=== PATIENT | female | born 1975 | race African-American/Black ===

== ENCOUNTER 2020-07-25 10:27 | Emergency (ER) | payer OTHER ==
[~2020-07-25] VITALS: Ht 144.8 cm; Wt 72.7 kg
[~2020-07-25 10:27] MED LIST: BENZ-51 PO; FLUT1AER IH; IPRA4AER IH; IPRAHFA IH; LEVE500T53 PO; MONT-35 PO; PANT-31 PO; PRED10 PO; RIVA20TA PO
[2020-07-25] MEDS ORDERED: ALBUTEROL SULFATE HFA 90 MCG/PUFF 8 GM INHALER IH ONE (11:00)
[2020-07-25 12:03] LABS: COVID AG,FIA SOURCE NASOPHARYNGEAL
[2020-07-25] MEDS ORDERED: MORPHINE SULFATE 4 MG/ML SYRINGE IVP ONE (12:15)
[2020-07-25] MEDS ORDERED: ONDANSETRON HCL 4 MG/2 ML VIAL IVP ONE (12:15)
[2020-07-25 13:05] LABS: BASOPHILS % (AUTO) 0.9 % (0.0-2.0); EOSINOPHILS % (AUTO) 1.1 % (1.0-6.0); HEMATOCRIT 32.3 % (36-46); HEMOGLOBIN 10.1 g/dL (12.0-16.0); LYMPHOCYTES # (AUTO) 2.2 K/uL (1.0-4.8); LYMPHOCYTES % (AUTO) 22.1 % (22.0-44.0); MEAN CORPUSCULAR HEMOGLOBIN 23.7 pg (26.0-34.0); MEAN CORPUSCULAR HGB CONC 31.1 G/dL (31.0-37.0); MEAN CORPUSCULAR VOLUME 76 fL (80-100); MONOCYTES # (AUTO) 0.4 K/uL (0.1-1.0); MONOCYTES % (AUTO) 4.2 % (2.0-9.0); NEUTROPHILS # (AUTO) 7.3 K/uL (1.8-7.7); NEUTROPHILS % (AUTO) 71.7 % (40.0-70.0); PLATELET COUNT (AUTO) 355 K/uL (150-450); RED BLOOD CELL COUNT(AUTO) 4.24 MIL/uL (4.00-5.20); RED CELL DISTRIBUTION WIDTH 18.8 % (11.5-14.5)
[2020-07-25 13:20] LABS: ALANINE AMINOTRANSFERASE 21 U/L (12-78); ALBUMIN 3.1 g/dL (3.4-5.0); ALKALINE PHOSPHATASE 56 U/L (46-116); ANION GAP 11 mmol/L (8-16); ASPARTATE AMINOTRANSFERASE 9 U/L (15-37); BILIRUBIN,TOTAL 0.5 mg/dL (0.1-1.0); CALCIUM, TOTAL 8.7 mg/dL (8.8-10.5); CARBON DIOXIDE 24 mmol/L (22-29); CHLORIDE 106 mmol/L (98-107); CREATININE 0.44 mg/dL (0.60-1.30); GLOMERULAR FILTR. RATE CALC > 60 mL/min (>60); GLUCOSE,RANDOM 76 mg/dL (70-110); HCG,QUANTITATIVE 1 mIU/mL (0-6); POTASSIUM 3.4 mmol/L (3.5-5.1); SODIUM SERUM 141 mmol/L (136-145); UREA NITROGEN, BLOOD 15 mg/dL (7-18)
[2020-07-25 13:37] LABS: B-TYPE NATRIURETIC PEPTIDE 11 pg/mL (0-100)
[2020-07-25 13:51] VITALS: BP 131/70
== END 2020-07-25 14:05 | disposition home or self-care (01) ==
LOC: EMS 10:29
DX: J45.901 Unspecified asthma with (acute) exacerbation (principal); F12.90 Cannabis use, unspecified, uncomplicated; Z79.899 Other long term (current) drug therapy; Z20.828 Contact with and (suspected) exposure to other viral communicable diseases
CPT/HCPCS: 36415; 71045; 80053; 83880; 84484; 84702; 85025; 85379; 87426; 93005; 94640; 96374; 96375; 99285; J2270; J2405; J3535

== ENCOUNTER 2021-05-05 18:21 | Emergency (ER) | payer OTHER ==
[~2021-05-05] VITALS: Ht 162.6 cm; Wt 94.7 kg
[~2021-05-05 18:21] MED LIST changes: -BENZ-51 PO; +BENZ-70 PO
[2021-05-05 19:53] LABS: GLUCOSE,POINT OF CARE 190 MG/DL (70-110)
[2021-05-05 20:31] LABS: HEMATOCRIT 38.6 % (36-46); HEMOGLOBIN 11.9 g/dL (12.0-16.0); MEAN CORPUSCULAR HEMOGLOBIN 23.5 pg (26.0-34.0); MEAN CORPUSCULAR HGB CONC 30.8 G/dL (31.0-37.0); MEAN CORPUSCULAR VOLUME 76 fL (80-100); PLATELET COUNT (AUTO) 339 K/uL (150-450); RED BLOOD CELL COUNT(AUTO) 5.07 MIL/uL (4.00-5.20); RED CELL DISTRIBUTION WIDTH 19.5 % (11.5-14.5)
[2021-05-05 20:42] LABS: ANION GAP 9 mmol/L (8-16); CALCIUM, TOTAL 9.2 mg/dL (8.8-10.5); CARBON DIOXIDE 27 mmol/L (22-29); CHLORIDE 98 mmol/L (98-107); CREATININE 1.05 mg/dL (0.60-1.30); GLOMERULAR FILTR. RATE CALC > 60 mL/min (>60); GLUCOSE,RANDOM 184 mg/dL (70-110); POTASSIUM 4.5 mmol/L (3.5-5.1); SODIUM SERUM 134 mmol/L (136-145); UREA NITROGEN, BLOOD 40 mg/dL (7-18)
[2021-05-05 21:22] LABS: BAND NEUTROPHILS % (MANUAL) 2 % (0-5); LYMPHOCYTES % (MANUAL) 5 % (22-44); MONOCYTES % (MANUAL) 4 % (2-9); SEGMENTED NEUTROPHILS % 89 % (40-70)
[2021-05-05 21:25] VITALS: BP 130/93
== END 2021-05-05 22:15 | disposition home or self-care (01) ==
LOC: EMS 18:22
DX: G40.909 Epilepsy, unspecified, not intractable, without status epilepticus (principal); F25.9 Schizoaffective disorder, unspecified; D72.829 Elevated white blood cell count, unspecified; R73.9 Hyperglycemia, unspecified; J44.9 Chronic obstructive pulmonary disease, unspecified; F12.90 Cannabis use, unspecified, uncomplicated
CPT/HCPCS: 80048; 82962; 85025; 99283

== ENCOUNTER 2021-06-19 20:57 | Emergency (ER) | payer OTHER ==
[~2021-06-19] VITALS: Ht 170.2 cm; Wt 99.6 kg
[2021-06-19] MEDS ORDERED: LORazepam 2 MG/ML VIAL ONE (21:08)
[2021-06-19] MEDS ORDERED: LORazepam 2 MG/ML VIAL IVP ONE (21:15)
[2021-06-19 22:07] LABS: ANION GAP 7 mmol/L (8-16); CALCIUM, TOTAL 8.2 mg/dL (8.8-10.5); CARBON DIOXIDE 28 mmol/L (22-29); CHLORIDE 107 mmol/L (98-107); CREATININE 0.99 mg/dL (0.60-1.30); GLOMERULAR FILTR. RATE CALC > 60 mL/min (>60); GLUCOSE,RANDOM 96 mg/dL (70-110); POTASSIUM 3.6 mmol/L (3.5-5.1); SODIUM SERUM 142 mmol/L (136-145); UREA NITROGEN, BLOOD 16 mg/dL (7-18)
[2021-06-19 22:13] LABS: VALPROIC ACID 84 mcg/mL (50-100)
[2021-06-19] MEDS ORDERED: HYDROCODONE/ACETAMINOPHEN 5-325 MG TABLET PO ONE (23:00)
[2021-06-20 00:02] VITALS: BP 100/60
== END 2021-06-20 00:37 | disposition home or self-care (01) ==
LOC: EMS 21:02
DX: G40.909 Epilepsy, unspecified, not intractable, without status epilepticus (principal); R07.89 Other chest pain; J45.909 Unspecified asthma, uncomplicated; J44.9 Chronic obstructive pulmonary disease, unspecified; F20.9 Schizophrenia, unspecified; F12.90 Cannabis use, unspecified, uncomplicated
CPT/HCPCS: 36415; 70450; 71045; 80048; 80164; 93005; 96374; 99285; J2060

== ENCOUNTER 2022-04-16 21:48 | Emergency (ER) | payer OTHER ==
[~2022-04-16] VITALS: Ht 157.5 cm; Wt 109.1 kg
[~2022-04-16 21:48] MED LIST changes: +LEVE500T20 PO; -LEVE500T53 PO; +PRED-729 PO; -PRED10 PO
[2022-04-16] MEDS ORDERED: LORazepam 2 MG/ML VIAL ONE (22:03)
[2022-04-16] MEDS ORDERED: VENL-67 PO (22:45)
[2022-04-16] MEDS ORDERED: METO-558 PO (22:45)
[2022-04-16] MEDS ORDERED: PARO-38 PO (22:45)
[2022-04-16] MEDS ORDERED: LORA-999 PO (22:45)
[2022-04-16] MEDS ORDERED: FURO20 PO (22:45)
[2022-04-16] MEDS ORDERED: VALP250C48 PO (22:45)
[2022-04-16] MEDS ORDERED: HYDR-4584 PO (22:45)
[2022-04-16] MEDS ORDERED: LORazepam 2 MG/ML VIAL IVP ONE (22:45)
[2022-04-16] MEDS ORDERED: MELA5TAB40 PO (22:45)
[2022-04-16] MEDS ORDERED: GABA-1181 PO (22:45)
[2022-04-16 22:57] LABS: BASOPHILS % (AUTO) 0.8 % (0.0-2.0); EOSINOPHILS % (AUTO) 3.5 % (1.0-6.0); HEMATOCRIT 39.8 % (36-46); LYMPHOCYTES # (AUTO) 2.1 K/uL (1.0-4.8); LYMPHOCYTES % (AUTO) 23.1 % (22.0-44.0); MEAN CORPUSCULAR HGB CONC 32.6 G/dL (31.0-37.0); MEAN CORPUSCULAR VOLUME 89 fL (80-100); MONOCYTES # (AUTO) 0.8 K/uL (0.1-1.0); MONOCYTES % (AUTO) 8.8 % (2.0-9.0); NEUTROPHILS # (AUTO) 5.8 K/uL (1.8-7.7); NEUTROPHILS % (AUTO) 63.8 % (40.0-70.0); PLATELET COUNT (AUTO) 384 K/uL (150-450); RED BLOOD CELL COUNT(AUTO) 4.47 MIL/uL (4.00-5.20); RED CELL DISTRIBUTION WIDTH 18.3 % (11.5-14.5)
[2022-04-16 23:06] LABS: ANION GAP 8 mmol/L (8-16); CALCIUM, TOTAL 8.6 mg/dL (8.8-10.5); CARBON DIOXIDE 27 mmol/L (22-29); CHLORIDE 105 mmol/L (98-107); CREATININE 0.67 mg/dL (0.60-1.30); GLUCOSE,RANDOM 144 mg/dL (70-110); POTASSIUM 4.2 mmol/L (3.5-5.1); SODIUM SERUM 140 mmol/L (136-145); UREA NITROGEN, BLOOD 16 mg/dL (7-18)
[2022-04-16 23:07] LABS: GLOMERULAR FILTR. RATE CALC > 60 mL/min (>60)
[2022-04-16 23:12] LABS: ALANINE AMINOTRANSFERASE 23 U/L (12-78); ALBUMIN 3.1 g/dL (3.4-5.0); ALKALINE PHOSPHATASE 64 U/L (46-116); ASPARTATE AMINOTRANSFERASE 26 U/L (15-37); BILIRUBIN,TOTAL 0.1 mg/dL (0.1-1.0); TOTAL PROTEIN, SERUM 6.5 g/dL (6.4-8.2)
[2022-04-17 02:18] VITALS: BP 104/65
== END 2022-04-17 03:21 | disposition home or self-care (01) ==
LOC: EMS 22:02
DX: G40.909 Epilepsy, unspecified, not intractable, without status epilepticus (principal); F25.9 Schizoaffective disorder, unspecified; J45.909 Unspecified asthma, uncomplicated; J44.9 Chronic obstructive pulmonary disease, unspecified; E11.9 Type 2 diabetes mellitus without complications; G47.30 Sleep apnea, unspecified; F12.90 Cannabis use, unspecified, uncomplicated; Z87.09 Personal history of other diseases of the respiratory system; Z87.19 Personal history of other diseases of the digestive system; Z86.69 Personal history of other diseases of the nervous system and sense organs; Z87.898 Personal history of other specified conditions
CPT/HCPCS: 36415; 71045; 80053; 85025; 93005; 96374; 99285; J2060

== ENCOUNTER 2022-12-17 18:47 | Inpatient (IN) | payer MEDICAID, OTHER ==
[~2022-12-17] VITALS: Ht 144.8 cm; Wt 233.6 kg
[~2022-12-17 18:47] MED LIST changes: +BENZ-227 PO; -BENZ-70 PO; +FURO20 PO; +GABA-1181 PO; +HYDR-4584 PO; +LORA-999 PO; +MELA5TAB40 PO; +METO-558 PO; +PARO-38 PO; -PRED-729 PO; +VALP250C48 PO; +VENL-67 PO
[2022-12-17 20:52] LABS: COVID AG,FIA SOURCE NASOPHARYNGEAL
[2022-12-17 21:25] LABS: BASOPHILS % (AUTO) 0.6 % (0.0-2.0); EOSINOPHILS % (AUTO) 0 % (1.0-6.0); HEMATOCRIT 36.3 % (36-46); HEMOGLOBIN 11.3 g/dL (12.0-16.0); LYMPHOCYTES # (AUTO) 1.5 K/uL (1.0-4.8); LYMPHOCYTES % (AUTO) 11.9 % (22.0-44.0); MEAN CORPUSCULAR HEMOGLOBIN 25.6 pg (26.0-34.0); MEAN CORPUSCULAR HGB CONC 31.3 G/dL (31.0-37.0); MEAN CORPUSCULAR VOLUME 82 fL (80-100); MONOCYTES # (AUTO) 0.6 K/uL (0.1-1.0); MONOCYTES % (AUTO) 4.5 % (2.0-9.0); NEUTROPHILS # (AUTO) 10.7 K/uL (1.8-7.7); PLATELET COUNT (AUTO) 372 K/uL (150-450); RED BLOOD CELL COUNT(AUTO) 4.43 MIL/uL (4.00-5.20); RED CELL DISTRIBUTION WIDTH 18.8 % (11.5-14.5)
[2022-12-17 21:34] LABS: ANION GAP 10 mmol/L (8-16); CALCIUM, TOTAL 8.8 mg/dL (8.8-10.5); CARBON DIOXIDE 23 mmol/L (22-29); CHLORIDE 105 mmol/L (98-107); CREATININE 0.89 mg/dL (0.60-1.30); GLOMERULAR FILTR. RATE CALC > 60 mL/min (>60); GLUCOSE,RANDOM 264 mg/dL (70-110); POTASSIUM 4.1 mmol/L (3.5-5.1); SODIUM SERUM 138 mmol/L (136-145); UREA NITROGEN, BLOOD 15 mg/dL (7-18)
[2022-12-17 21:57] LABS: ALANINE AMINOTRANSFERASE 13 U/L (12-78); ALBUMIN 2.9 g/dL (3.4-5.0); ALKALINE PHOSPHATASE 59 U/L (46-116); ASPARTATE AMINOTRANSFERASE 13 U/L (15-37); BILIRUBIN,TOTAL 0.2 mg/dL (0.1-1.0); HCG,QUANTITATIVE < 1 mIU/mL (0-6); THYROID STIMULATING HORMONE 0.93 uIU/mL (0.36-3.74); TOTAL PROTEIN, SERUM 6.7 g/dL (6.4-8.2)
[2022-12-18 13:26] LABS: GLUCOSE,POINT OF CARE 195 MG/DL (70-110)
[2022-12-19 03:23] LABS: APPEARANCE,URINE HAZY (CLEAR); BILIRUBIN,URINE NEGATIVE (NEGATIVE); GLUCOSE, URINE (UA) TRACE mg/dL (NEGATIVE); KETONES,URINE TRACE mg/dL (NEGATIVE); LEUKOCYTE ESTERASE ,URINE LARGE (NEGATIVE); NITRATE,URINE NEGATIVE (NEGATIVE); OCCULT BLOOD,URINE NEGATIVE (NEGATIVE); PROTEIN,URINE 30-70 mg/dL (NEGATIVE); SPECIFIC GRAVITIY, URINE 1.032 (1.003-1.030); UROBILINOGEN,URINE <=1.0 mg/dL (<=1.0)
[2022-12-19 03:30] LABS: AMPHET/METH SCREEN,URINE NEGATIVE (NEGATIVE); BACTERIA,URINE Few /HPF (None Seen); BARBITURATE SCREEN, URINE NEGATIVE (NEGATIVE); BENZODIAZEPINES SCREEN,URINE NEGATIVE (NEGATIVE); CANNABINOID SCREEN,URINE NEGATIVE (NEGATIVE); COCAINE SCREEN,URINE NEGATIVE (NEGATIVE); METHADONE SCREEN, URINE NEGATIVE (NEGATIVE); OPIATE SCREEN,URINE NEGATIVE (NEGATIVE); PHENCYCLIDINE SCREEN,URINE NEGATIVE (NEGATIVE); RBC,URINE 0-2 /HPF (0-2)
[2022-12-19 03:31] LABS: CALCIUM OXALATE CRYSTALS,UR Few /LPF (None Seen); SQUAMOUS EPITHELIAL CELL,UR Moderate /LPF (None Seen)
[2022-12-19 09:11] LABS: APPEARANCE,URINE HAZY (CLEAR); BILIRUBIN,URINE NEGATIVE (NEGATIVE); GLUCOSE, URINE (UA) NEGATIVE (NEGATIVE); KETONES,URINE NEGATIVE (NEGATIVE); LEUKOCYTE ESTERASE ,URINE LARGE (NEGATIVE); NITRATE,URINE NEGATIVE (NEGATIVE); OCCULT BLOOD,URINE TRACE (NEGATIVE); PROTEIN,URINE NEGATIVE (NEGATIVE); SPECIFIC GRAVITIY, URINE 1.017 (1.003-1.030); UROBILINOGEN,URINE <=1.0 mg/dL (<=1.0)
[2022-12-19 09:23] LABS: BACTERIA,URINE None Seen /HPF (None Seen); RBC,URINE 0-2 /HPF (0-2); SQUAMOUS EPITHELIAL CELL,UR Many /LPF (None Seen)
[2022-12-19] MEDS ORDERED: LOPERAMIDE HCL 2 MG CAPSULE PO PRN (09:30)
[2022-12-19] MEDS ORDERED: PETROLATUM,WHITE 28 GM JELLY TP PRN (09:30)
[2022-12-19] MEDS ORDERED: ACETAMINOPHEN 325 MG TABLET PO PRN (09:30)
[2022-12-19] MEDS ORDERED: MAGNESIUM HYDROXIDE SUSPENSION 30 ML UDCUP PO PRN (09:30)
[2022-12-19] MEDS ORDERED: DOCUSATE SODIUM 100 MG CAPSULE PO PRN (09:30)
[2022-12-19] MEDS ORDERED: CloNIDine HCL 0.1 MG TABLET PO PRN (09:30)
[2022-12-19] MEDS ORDERED: ONDANSETRON HCL 4 MG TABLET PO PRN (09:30)
[2022-12-19] MEDS ORDERED: MAG HYDROX/AL HYDROX/SIMETH ES 30 ML SUSPENSION UDCUP PO PRN (09:30)
[2022-12-19] MEDS ORDERED: NICOTINE 14 MG/24 HOUR PATCH TD PRN (09:30)
[2022-12-19] MEDS ORDERED: ALBUTEROL SULFATE HFA 90 MCG/PUFF 8 GM INHALER IH PRN (09:30)
[2022-12-19] MEDS ORDERED: GuaiFENesin/D-METHORPHAN [SUGAR-FREE] 200-20MG/10 ML SYRUP UDCUP PO PRN (09:30)
[2022-12-19] MEDS ORDERED: RIVA10TA PO (10:53)
[2022-12-19] MEDS ORDERED: LEVE250T4 PO (11:15)
[2022-12-19] MEDS ORDERED: LEVE500T20 PO (11:15)
[2022-12-19] MEDS: HALOPERIDOL 5 MG TABLET PO PRN (15:41)
[2022-12-19] MEDS: GABAPENTIN 300 MG CAPSULE PO SCH (15:41)
[2022-12-19] MEDS: LORazepam 2 MG TABLET PO PRN (15:41)
[2022-12-19] MEDS: RIVAROXABAN 10 MG TABLET PO SCH (17:22)
[2022-12-19] MEDS: LevETIRAcetam 500 MG TABLET PO SCH (18:38)
[2022-12-19 18:45] VITALS: BP 128/77
[2022-12-19] MEDS: CIPROFLOXACIN HCL 500 MG TABLET PO SCH (18:45)
[2022-12-20 08:10] VITALS: BP 123/77
[2022-12-20] MEDS: CIPROFLOXACIN HCL 500 MG TABLET PO SCH ×2 (10:19→17:41)
[2022-12-20] MEDS: MONTELUKAST SODIUM 10 MG TABLET PO SCH (10:26)
[2022-12-20] MEDS: GABAPENTIN 300 MG CAPSULE PO SCH ×3 (10:29→17:41)
[2022-12-20] MEDS: FUROSEMIDE 20 MG TABLET PO SCH (10:29)
[2022-12-20] MEDS: LevETIRAcetam 500 MG TABLET PO SCH ×2 (10:34→17:41)
[2022-12-20] MEDS: VENLAFAXINE HCL 75 MG ER CAPSULE PO SCH (10:35)
[2022-12-20] MEDS: PANTOPRAZOLE SODIUM 40 MG DR TABLET PO SCH (10:35)
[2022-12-20] MEDS: PARoxetine HCL 20 MG TABLET PO SCH (10:36)
[2022-12-20] MEDS: LORazepam 2 MG TABLET PO PRN (16:32)
[2022-12-20] MEDS: RIVAROXABAN 10 MG TABLET PO SCH (17:42)
[2022-12-20 18:07] VITALS: BP 129/87
[2022-12-20] MEDS: VALPROIC ACID 250 MG/5 ML SOLUTION UDCUP PO SCH (20:57)
[2022-12-20 22:41] VITALS: BP 139/82
[2022-12-21] MEDS: LevETIRAcetam 500 MG TABLET PO SCH ×2 (08:57→16:27)
[2022-12-21] MEDS: FUROSEMIDE 20 MG TABLET PO SCH (08:57)
[2022-12-21] MEDS: PANTOPRAZOLE SODIUM 40 MG DR TABLET PO SCH (08:57)
[2022-12-21] MEDS: GABAPENTIN 300 MG CAPSULE PO SCH ×3 (08:57→16:26)
[2022-12-21] MEDS: CIPROFLOXACIN HCL 500 MG TABLET PO SCH ×2 (08:57→16:26)
[2022-12-21] MEDS: PARoxetine HCL 20 MG TABLET PO SCH (08:57)
[2022-12-21] MEDS: MONTELUKAST SODIUM 10 MG TABLET PO SCH (08:58)
[2022-12-21] MEDS: VENLAFAXINE HCL 75 MG ER CAPSULE PO SCH (08:59)
[2022-12-21 09:37] VITALS: BP 106/67
[2022-12-21 10:04] VITALS: BP 106/67
[2022-12-21] MEDS ORDERED: LORazepam 2 MG/ML VIAL ONE (11:59)
[2022-12-21] MEDS ORDERED: LORazepam 2 MG/ML VIAL IM ONE (12:15)
[2022-12-21 12:16] LABS: GLUCOMETER DEV NAME(LOC) 3E.C; GLUCOSE,POINT OF CARE 141 MG/DL (70-110)
[2022-12-21 16:22] VITALS: BP 146/67
[2022-12-21] MEDS: RIVAROXABAN 10 MG TABLET PO SCH (16:27)
[2022-12-21 18:45] VITALS: BP 147/63
[2022-12-21] MEDS: LORazepam 2 MG TABLET PO PRN ×2 (18:49→22:50)
[2022-12-21] MEDS: HALOPERIDOL 5 MG TABLET PO PRN (19:55)
[2022-12-21] MEDS: VALPROIC ACID 250 MG/5 ML SOLUTION UDCUP PO SCH (21:42)
[2022-12-21 22:22] VITALS: BP 123/75
[2022-12-22] MEDS: VENLAFAXINE HCL 75 MG ER CAPSULE PO SCH (08:19)
[2022-12-22] MEDS: FUROSEMIDE 20 MG TABLET PO SCH (08:19)
[2022-12-22] MEDS: MONTELUKAST SODIUM 10 MG TABLET PO SCH (08:19)
[2022-12-22] MEDS: CIPROFLOXACIN HCL 500 MG TABLET PO SCH ×2 (08:19→17:44)
[2022-12-22] MEDS: GABAPENTIN 300 MG CAPSULE PO SCH ×3 (08:19→17:44)
[2022-12-22] MEDS: LevETIRAcetam 500 MG TABLET PO SCH ×2 (08:19→17:44)
[2022-12-22] MEDS: PARoxetine HCL 20 MG TABLET PO SCH (08:20)
[2022-12-22] MEDS: PANTOPRAZOLE SODIUM 40 MG DR TABLET PO SCH (08:20)
[2022-12-22 08:33] VITALS: BP 122/85
[2022-12-22] MEDS ORDERED: LORazepam 2 MG/ML VIAL ONE (15:34)
[2022-12-22] MEDS ORDERED: LORazepam 2 MG/ML VIAL IM ONE ×2 (15:45→20:30)
[2022-12-22] MEDS ORDERED: INSU100I47 SQ (15:47)
[2022-12-22] MEDS ORDERED: FLUT1BLS3 IH (15:47)
[2022-12-22] MEDS ORDERED: LORA-1000 PO (15:47)
[2022-12-22] MEDS ORDERED: ALBU8HFA IH (15:47)
[2022-12-22] MEDS ORDERED: POTA-203 PO (15:47)
[2022-12-22 16:18] VITALS: BP 148/98
[2022-12-22] MEDS: RIVAROXABAN 10 MG TABLET PO SCH (17:44)
[2022-12-22 20:00] VITALS: BP 116/58
[2022-12-22] MEDS: VALPROIC ACID 250 MG/5 ML SOLUTION UDCUP PO SCH (20:30)
[2022-12-23] VITALS (12 sets, daily range): BP systolic 100–139; BP diastolic 61–86
[2022-12-23] MEDS: LORazepam 2 MG TABLET PO PRN ×4 (02:21→20:51)
[2022-12-23 06:54] LABS: COVID AG,FIA SOURCE NASAL SWAB
[2022-12-23] MEDS: LevETIRAcetam 500 MG TABLET PO SCH ×2 (08:42→16:32)
[2022-12-23] MEDS: VENLAFAXINE HCL 75 MG ER CAPSULE PO SCH (08:42)
[2022-12-23] MEDS: FUROSEMIDE 20 MG TABLET PO SCH (08:43)
[2022-12-23] MEDS: GABAPENTIN 300 MG CAPSULE PO SCH ×3 (08:43→16:32)
[2022-12-23] MEDS: PANTOPRAZOLE SODIUM 40 MG DR TABLET PO SCH (08:43)
[2022-12-23] MEDS: PARoxetine HCL 20 MG TABLET PO SCH (08:43)
[2022-12-23] MEDS: MONTELUKAST SODIUM 10 MG TABLET PO SCH (08:44)
[2022-12-23] MEDS: CIPROFLOXACIN HCL 500 MG TABLET PO SCH ×2 (08:44→16:32)
[2022-12-23 09:21] LABS: GLUCOMETER DEV NAME(LOC) 3E.C; GLUCOSE,POINT OF CARE 164 MG/DL (70-110)
[2022-12-23 15:46] LABS: GLUCOMETER DEV NAME(LOC) 3E.C; GLUCOSE,POINT OF CARE 130 MG/DL (70-110)
[2022-12-23] MEDS: PredniSONE 20 MG TABLET PO SCH (16:34)
[2022-12-23] MEDS: RIVAROXABAN 10 MG TABLET PO SCH (17:16)
[2022-12-23] MEDS: VALPROIC ACID 250 MG/5 ML SOLUTION UDCUP PO SCH (20:27)
[2022-12-23] MEDS: FLUTICASONE/VILANTEROL 200-25 MCG/INH INHALER [14] IH SCH (20:29)
[2022-12-23] MEDS ORDERED: IBUPROFEN 400 MG TABLET PO PRN (22:15)
[2022-12-23] MEDS: ZOLPIDEM TARTRATE 10 MG TABLET PO PRN (23:07)
[2022-12-24 04:50] VITALS: BP 146/65
[2022-12-24] MEDS: LORazepam 2 MG TABLET PO PRN ×2 (04:56→17:07)
[2022-12-24] MEDS: LevETIRAcetam 500 MG TABLET PO SCH ×2 (08:46→16:10)
[2022-12-24] MEDS: PARoxetine HCL 20 MG TABLET PO SCH (08:46)
[2022-12-24] MEDS: GABAPENTIN 300 MG CAPSULE PO SCH ×3 (08:46→16:10)
[2022-12-24] MEDS: FUROSEMIDE 20 MG TABLET PO SCH (08:46)
[2022-12-24] MEDS: PredniSONE 20 MG TABLET PO SCH (08:46)
[2022-12-24] MEDS: PANTOPRAZOLE SODIUM 40 MG DR TABLET PO SCH (08:46)
[2022-12-24] MEDS: VENLAFAXINE HCL 75 MG ER CAPSULE PO SCH (08:46)
[2022-12-24] MEDS: VALPROIC ACID 250 MG CAPSULE PO SCH (08:47)
[2022-12-24] MEDS: FLUTICASONE/VILANTEROL 200-25 MCG/INH INHALER [14] IH SCH (08:47)
[2022-12-24] MEDS: MONTELUKAST SODIUM 10 MG TABLET PO SCH (08:47)
[2022-12-24] MEDS: CIPROFLOXACIN HCL 500 MG TABLET PO SCH ×2 (08:47→16:10)
[2022-12-24 09:06] VITALS: BP 125/85
[2022-12-24 16:10] VITALS: BP 134/73
[2022-12-24] MEDS: RIVAROXABAN 10 MG TABLET PO SCH (16:10)
[2022-12-24 20:25] VITALS: BP_SYST 13; BP_SYST 132; BP_DIAS 72
[2022-12-24] MEDS: VALPROIC ACID 250 MG/5 ML SOLUTION UDCUP PO SCH (20:52)
[2022-12-25] VITALS (8 sets, daily range): BP systolic 123–159; BP diastolic 52–98
[2022-12-25] MEDS: LORazepam 2 MG TABLET PO PRN ×3 (00:21→20:20)
[2022-12-25] MEDS: ZOLPIDEM TARTRATE 10 MG TABLET PO PRN (02:27)
[2022-12-25] MEDS: VALPROIC ACID 250 MG CAPSULE PO SCH (09:10)
[2022-12-25] MEDS: VENLAFAXINE HCL 75 MG ER CAPSULE PO SCH (09:10)
[2022-12-25] MEDS: GABAPENTIN 300 MG CAPSULE PO SCH ×3 (09:10→16:09)
[2022-12-25] MEDS: PANTOPRAZOLE SODIUM 40 MG DR TABLET PO SCH (09:10)
[2022-12-25] MEDS: LevETIRAcetam 500 MG TABLET PO SCH ×2 (09:11→16:09)
[2022-12-25] MEDS: FUROSEMIDE 20 MG TABLET PO SCH (09:11)
[2022-12-25] MEDS: PARoxetine HCL 20 MG TABLET PO SCH (09:12)
[2022-12-25] MEDS: FLUTICASONE/VILANTEROL 200-25 MCG/INH INHALER [14] IH SCH (09:12)
[2022-12-25] MEDS: PredniSONE 20 MG TABLET PO SCH (09:12)
[2022-12-25] MEDS: MONTELUKAST SODIUM 10 MG TABLET PO SCH (09:12)
[2022-12-25] MEDS: RIVAROXABAN 10 MG TABLET PO SCH (16:09)
[2022-12-25 16:16] LABS: GLUCOMETER DEV NAME(LOC) 3E.C; GLUCOSE,POINT OF CARE 272 MG/DL (70-110)
[2022-12-25] MEDS: VALPROIC ACID 250 MG/5 ML SOLUTION UDCUP PO SCH (20:18)
[2022-12-26] MEDS: PARoxetine HCL 20 MG TABLET PO SCH (10:08)
[2022-12-26] MEDS: VALPROIC ACID 250 MG CAPSULE PO SCH (10:08)
[2022-12-26] MEDS: PANTOPRAZOLE SODIUM 40 MG DR TABLET PO SCH (10:08)
[2022-12-26] MEDS: PredniSONE 20 MG TABLET PO SCH (10:08)
[2022-12-26] MEDS: LevETIRAcetam 500 MG TABLET PO SCH ×2 (10:08→16:07)
[2022-12-26] MEDS: GABAPENTIN 300 MG CAPSULE PO SCH ×3 (10:08→16:07)
[2022-12-26] MEDS: VENLAFAXINE HCL 75 MG ER CAPSULE PO SCH (10:08)
[2022-12-26] MEDS: MONTELUKAST SODIUM 10 MG TABLET PO SCH (10:08)
[2022-12-26] MEDS: FUROSEMIDE 20 MG TABLET PO SCH (10:08)
[2022-12-26] MEDS: FLUTICASONE/VILANTEROL 200-25 MCG/INH INHALER [14] IH SCH (10:09)
[2022-12-26 11:00] VITALS: BP 136/91
[2022-12-26] MEDS: LORazepam 2 MG TABLET PO PRN ×2 (13:03→17:45)
[2022-12-26 16:38] VITALS: BP 148/98
[2022-12-26] MEDS: RIVAROXABAN 10 MG TABLET PO SCH (17:44)
[2022-12-26] MEDS: VALPROIC ACID 250 MG/5 ML SOLUTION UDCUP PO SCH (20:48)
[2022-12-26] MEDS ORDERED: VENL-67 PO (21:24)
[2022-12-26] MEDS ORDERED: PARO-37 PO (21:24)
[2022-12-26] MEDS ORDERED: VALP250C48 PO (21:24)
[2022-12-26] MEDS ORDERED: VALP250S23 PO (21:24)
[2022-12-26 21:55] VITALS: BP 108/80
[2022-12-27 04:05] VITALS: BP 128/79
[2022-12-27] MEDS: VALPROIC ACID 250 MG CAPSULE PO SCH (08:32)
[2022-12-27] MEDS: MONTELUKAST SODIUM 10 MG TABLET PO SCH (08:32)
[2022-12-27] MEDS: FLUTICASONE/VILANTEROL 200-25 MCG/INH INHALER [14] IH SCH (08:32)
[2022-12-27] MEDS: LevETIRAcetam 500 MG TABLET PO SCH ×2 (08:36→16:56)
[2022-12-27] MEDS: PredniSONE 20 MG TABLET PO SCH (08:36)
[2022-12-27] MEDS: GABAPENTIN 300 MG CAPSULE PO SCH ×3 (08:36→16:56)
[2022-12-27] MEDS: FUROSEMIDE 20 MG TABLET PO SCH (08:36)
[2022-12-27] MEDS: VENLAFAXINE HCL 75 MG ER CAPSULE PO SCH (08:36)
[2022-12-27] MEDS: PARoxetine HCL 20 MG TABLET PO SCH (08:36)
[2022-12-27] MEDS: PANTOPRAZOLE SODIUM 40 MG DR TABLET PO SCH (08:36)
[2022-12-27 09:25] VITALS: BP 134/95
[2022-12-27 11:30] VITALS: BP 136/100
[2022-12-27] MEDS: LORazepam 2 MG TABLET PO PRN (11:32)
[2022-12-27 16:04] VITALS: BP 132/85
[2022-12-27] MEDS: RIVAROXABAN 10 MG TABLET PO SCH (16:56)
== END 2022-12-27 17:35 | disposition home or self-care (01) | DRG 750 ==
LOC: EMS 19:06 → 3EI 12-19 17:08
PROVIDERS: ADMIT Psychiatry & Neurology Child & Adolescent Psychiatry; ATTEND Psychiatry & Neurology Child & Adolescent Psychiatry
PROC: 4A00X4Z Measurement of Central Nervous Electrical Activity, External Approach (ICD-10-PCS; principal; 2022-12-24)
DX: F25.0 Schizoaffective disorder, bipolar type (principal); G40.909 Epilepsy, unspecified, not intractable, without status epilepticus; R45.850 Homicidal ideations; I48.20 Chronic atrial fibrillation, unspecified; E11.9 Type 2 diabetes mellitus without complications; D64.9 Anemia, unspecified; F12.90 Cannabis use, unspecified, uncomplicated; J45.909 Unspecified asthma, uncomplicated; J44.9 Chronic obstructive pulmonary disease, unspecified; K21.9 Gastro-esophageal reflux disease without esophagitis; Z20.822 Contact with and (suspected) exposure to COVID-19; G47.33 Obstructive sleep apnea (adult) (pediatric); I10 Essential (primary) hypertension; R45.88 Nonsuicidal self-harm; Z76.5 Malingerer [conscious simulation]; Z79.899 Other long term (current) drug therapy; Z86.711 Personal history of pulmonary embolism
CPT/HCPCS: 71046; 80053; 80164; 80307; 81001; 82962; 84443; 84702; 85025; 87081; 87086; 87186; 95816; 99285; G0480; G0482; J2060; J3535; Q9967; 36415-L1; 36415-TC

== ENCOUNTER 2023-01-15 16:19 | Emergency (ER) | payer MEDICAID, OTHER ==
[~2023-01-15] VITALS: Ht 144.8 cm; Wt 133.2 kg
[~2023-01-15 16:19] MED LIST changes: -BENZ-227 PO; -FLUT1AER IH; +FLUT1BLS3 IH; -HYDR-4584 PO; -IPRA4AER IH; -IPRAHFA IH; -LORA-999 PO; -MELA5TAB40 PO; -METO-558 PO; +PARO-37 PO; -PARO-38 PO; +RIVA10TA PO; -RIVA20TA PO; +VALP250S23 PO
[2023-01-15] MEDS ORDERED: QUET25TA PO (16:37)
[2023-01-15] MEDS ORDERED: AUD NEB (16:37)
[2023-01-15] MEDS ORDERED: CHOL25TA4 PO (16:37)
[2023-01-15] MEDS ORDERED: INSLAN SQ (16:37)
[2023-01-15] MEDS ORDERED: BUDE0.5A NEB (16:37)
[2023-01-15] MEDS ORDERED: HYDR-4584 PO (16:37)
[2023-01-15] MEDS ORDERED: LORA-1000 PO (16:37)
[2023-01-15] MEDS ORDERED: METF-1211 PO (16:37)
[2023-01-15] MEDS ORDERED: ACET-2247 PO (16:37)
[2023-01-15] MEDS ORDERED: MELA5TAB40 PO (16:37)
[2023-01-15] MEDS ORDERED: ALBU18HF12 IH (16:37)
[2023-01-15] MEDS ORDERED: LACO100T4 PO (16:37)
[2023-01-15] MEDS ORDERED: FAMO20 PO (16:37)
[2023-01-15] MEDS ORDERED: SODIUM CHLORIDE 0.9% 1,000 ML IV ONE (16:45)
[2023-01-15] MEDS ORDERED: LevETIRAcetam 1,000 MG in DEXTROSE 5%-WATER 100 ML IV ONE (16:45)
[2023-01-15 17:23] VITALS: BP 139/82
[2023-01-15] MEDS ORDERED: KETOROLAC TROMETHAMINE 30 MG/ML VIAL IVP ONE (17:45)
[2023-01-15 20:13] LABS: EOSINOPHILS % (AUTO) 4.5 % (1.0-6.0); HEMATOCRIT 32.4 % (36-46); HEMOGLOBIN 10.2 g/dL (12.0-16.0); LYMPHOCYTES # (AUTO) 2.7 K/uL (1.0-4.8); LYMPHOCYTES % (AUTO) 32.4 % (22.0-44.0); MEAN CORPUSCULAR HEMOGLOBIN 25.7 pg (26.0-34.0); MEAN CORPUSCULAR HGB CONC 31.4 G/dL (31.0-37.0); MEAN CORPUSCULAR VOLUME 82 fL (80-100); MONOCYTES # (AUTO) 0.6 K/uL (0.1-1.0); NEUTROPHILS # (AUTO) 4.7 K/uL (1.8-7.7); NEUTROPHILS % (AUTO) 55.1 % (40.0-70.0); PLATELET COUNT (AUTO) 427 K/uL (150-450); RED BLOOD CELL COUNT(AUTO) 3.96 MIL/uL (4.00-5.20); RED CELL DISTRIBUTION WIDTH 18.5 % (11.5-14.5)
[2023-01-15 20:14] LABS: ANION GAP 8 mmol/L (8-16); CALCIUM, TOTAL 8.2 mg/dL (8.8-10.5); CARBON DIOXIDE 25 mmol/L (22-29); CHLORIDE 110 mmol/L (98-107); CREATININE 0.66 mg/dL (0.60-1.30); GLOMERULAR FILTR. RATE CALC > 60 mL/min (>60); GLUCOSE,RANDOM 100 mg/dL (70-110); SODIUM SERUM 143 mmol/L (136-145); UREA NITROGEN, BLOOD 9 mg/dL (7-18)
[2023-01-15 20:19] LABS: ALANINE AMINOTRANSFERASE 10 U/L (12-78); ALBUMIN 2.6 g/dL (3.4-5.0); ALKALINE PHOSPHATASE 62 U/L (46-116); ASPARTATE AMINOTRANSFERASE 34 U/L (15-37); BILIRUBIN,TOTAL 0.2 mg/dL (0.1-1.0)
[2023-01-15 20:23] LABS: PROTHROMBIN TIME 11.1 SEC (9.4-11.6)
[2023-01-15] MEDS ORDERED: ACETAMINOPHEN 500 MG TABLET PO ONE (20:30)
[2023-01-15 20:55] LABS: LACTIC ACID 2.1 mmol/L (0.4-2.0)
== END 2023-01-15 22:54 | disposition home or self-care (01) ==
LOC: EMS 16:20
DX: G40.909 Epilepsy, unspecified, not intractable, without status epilepticus (principal); J45.909 Unspecified asthma, uncomplicated; J44.9 Chronic obstructive pulmonary disease, unspecified; E11.9 Type 2 diabetes mellitus without complications; F20.9 Schizophrenia, unspecified; F12.90 Cannabis use, unspecified, uncomplicated
CPT/HCPCS: 99285; 96365; 71045; 96375; 80053; 83605; 85025; 85610; 85730; 36415; 93005; J0712; J1885; J7060

== ENCOUNTER 2023-05-25 21:12 | Emergency (ER) | payer OTHER ==
[~2023-05-25] VITALS: Ht 152.4 cm; Wt 91.2 kg
[~2023-05-25 21:12] MED LIST changes: +ACET-2247 PO; +ALBU18HF12 IH; +ALBU2.5V39 NEB; +BUDE0.5A NEB; +CHOL25TA4 PO; +FAMO20 PO; -FURO20 PO; +HYDR-4584 PO; +INSLAN SQ; +LACO100T4 PO; +LORA-1000 PO; +MELA5TAB40 PO; +METF-1211 PO; -PANT-31 PO; +QUET25TA PO; -VALP250C48 PO; -VENL-67 PO
[2023-05-25 21:25] VITALS: TEMP 98.1
[2023-05-25] MEDS ORDERED: LevETIRAcetam 1,000 MG in DEXTROSE 5%-WATER 100 ML IV ONE (21:30)
[2023-05-25 22:25] LABS: BASOPHILS % (AUTO) 1.2 % (0.0-2.0); EOSINOPHILS % (AUTO) 3.7 % (1.0-6.0); HEMATOCRIT 30.4 % (36-46); HEMOGLOBIN 9.3 g/dL (12.0-16.0); LYMPHOCYTES # (AUTO) 2.6 K/uL (1.0-4.8); LYMPHOCYTES % (AUTO) 26.1 % (22.0-44.0); MEAN CORPUSCULAR HEMOGLOBIN 21.6 pg (26.0-34.0); MEAN CORPUSCULAR HGB CONC 30.5 G/dL (31.0-37.0); MEAN CORPUSCULAR VOLUME 71 fL (80-100); MONOCYTES # (AUTO) 0.7 K/uL (0.1-1.0); MONOCYTES % (AUTO) 6.8 % (2.0-9.0); NEUTROPHILS # (AUTO) 6.3 K/uL (1.8-7.7); NEUTROPHILS % (AUTO) 62.2 % (40.0-70.0); PLATELET COUNT (AUTO) 398 K/uL (150-450); RED BLOOD CELL COUNT(AUTO) 4.31 MIL/uL (4.00-5.20); RED CELL DISTRIBUTION WIDTH 20.9 % (11.5-14.5)
[2023-05-25] MEDS ORDERED: MORPHINE SULFATE 2 MG/ML SYRINGE IVP ONE (22:30)
[2023-05-25 22:33] LABS: ANION GAP 13 mmol/L (8-16); CARBON DIOXIDE 22 mmol/L (22-29); CHLORIDE 104 mmol/L (98-107); CREATININE 0.83 mg/dL (0.60-1.30); GLOMERULAR FILTR. RATE CALC > 60 mL/min (>60); GLUCOSE,RANDOM 90 mg/dL (70-110); POTASSIUM 3.8 mmol/L (3.5-5.1); SODIUM SERUM 139 mmol/L (136-145)
[2023-05-25 22:37] LABS: PROTHROMBIN TIME 10.7 SEC (9.4-11.6)
[2023-05-25 22:39] LABS: ALANINE AMINOTRANSFERASE 21 U/L (12-78); ALBUMIN 3.2 g/dL (3.4-5.0); ALKALINE PHOSPHATASE 80 U/L (46-116); ASPARTATE AMINOTRANSFERASE 21 U/L (15-37); BILIRUBIN,TOTAL 0.3 mg/dL (0.1-1.0); CREATINE KINASE, TOTAL ONLY 43 U/L (26-192)
[2023-05-25 22:41] LABS: LACTIC ACID 1.1 mmol/L (0.4-2.0)
[2023-05-26] MEDS ORDERED: MIDAZOLAM HCL 5 MG/ML VIAL IVP ONE
[2023-05-26 00:56] VITALS: BP 118/76; PULSE 88; RESP 16
== END 2023-05-26 01:45 | disposition home or self-care (01) ==
LOC: EMS 21:12
DX: G40.909 Epilepsy, unspecified, not intractable, without status epilepticus (principal); J45.909 Unspecified asthma, uncomplicated; J44.9 Chronic obstructive pulmonary disease, unspecified; E11.9 Type 2 diabetes mellitus without complications; F20.9 Schizophrenia, unspecified; F12.90 Cannabis use, unspecified, uncomplicated
CPT/HCPCS: 99285; 96365; 70450; 71045; 96375; 80053; 82550; 83605; 84484; 85025; 85610; 85730; 36415; 93005; J0712; J2270; J7060; 51702

== ENCOUNTER 2024-05-26 18:27 | Inpatient (IN) | payer OTHER ==
[~2024-05-26] VITALS: Ht 165.1 cm; Wt 81.8 kg
[~2024-05-26 18:27] MED LIST changes: +LEVE-71 PO; -LEVE500T20 PO
[2024-05-26] MEDS: MIDAZOLAM HCL 5 MG/ML VIAL IM ONE (18:52)
[2024-05-26] MEDS: LevETIRAcetam 1,500 MG in DEXTROSE 5%-WATER 100 ML IV ONE (19:09)
[2024-05-26 19:15] LABS: BASOPHILS % (AUTO) 0.2 % (0.0-2.0); EOSINOPHILS % (AUTO) 0 % (1.0-6.0); HEMATOCRIT 42.5 % (36-46); HEMOGLOBIN 13.6 g/dL (12.0-16.0); LYMPHOCYTES # (AUTO) 0.6 K/uL (1.0-4.8); LYMPHOCYTES % (AUTO) 6.3 % (22.0-44.0); MEAN CORPUSCULAR HEMOGLOBIN 26.6 pg (26.0-34.0); MEAN CORPUSCULAR VOLUME 83 fL (80-100); MONOCYTES % (AUTO) 0.3 % (2.0-9.0); NEUTROPHILS # (AUTO) 8.7 K/uL (1.8-7.7); NEUTROPHILS % (AUTO) 93.2 % (40.0-70.0); PLATELET COUNT (AUTO) 360 K/uL (150-450); RED BLOOD CELL COUNT(AUTO) 5.12 MIL/uL (4.00-5.20); RED CELL DISTRIBUTION WIDTH 19.8 % (11.5-14.5); WHITE BLOOD COUNT (AUTO) 9.4 K/uL (4.5-11.0)
[2024-05-26 19:25] LABS: ANION GAP 18 mmol/L (8-16); CALCIUM, TOTAL 8.8 mg/dL (8.8-10.5); CARBON DIOXIDE 18 mmol/L (22-29); CHLORIDE 106 mmol/L (98-107); CREATININE 1.02 mg/dL (0.60-1.30); GLOMERULAR FILTR. RATE CALC > 60 mL/min (>60); GLUCOSE,RANDOM 124 mg/dL (70-110); POTASSIUM 3.7 mmol/L (3.5-5.1); RBC MORPHOLOGY COMMENT NORMAL RBC MORPH; SODIUM SERUM 141 mmol/L (136-145); UREA NITROGEN, BLOOD 11 mg/dL (7-18)
[2024-05-26 19:32] LABS: ALANINE AMINOTRANSFERASE 27 U/L (12-78); ALBUMIN 3.4 g/dL (3.4-5.0); ALKALINE PHOSPHATASE 90 U/L (46-116); ASPARTATE AMINOTRANSFERASE 19 U/L (15-37); BILIRUBIN,TOTAL 0.4 mg/dL (0.1-1.0); CREATINE KINASE, TOTAL ONLY 67 U/L (26-192); TOTAL PROTEIN, SERUM 7.5 g/dL (6.4-8.2)
[2024-05-26] MEDS ORDERED: MAGNESIUM HYDROXIDE SUSPENSION 30 ML UDCUP PO PRN (22:30)
[2024-05-26] MEDS ORDERED: BISACODYL 10 MG RECTAL RECTAL SUPPOSITORY PR PRN (22:30)
[2024-05-26] MEDS ORDERED: ZOLPIDEM TARTRATE 5 MG TABLET PO PRN (22:30)
[2024-05-26] MEDS ORDERED: HydrOXYzine HCL 50 MG TABLET PO PRN (22:30)
[2024-05-27] VITALS (10 sets, daily range): BP systolic 125–144; BP diastolic 66–92; PULSE 59–99; RESP 14–20; TEMP 97.7–98.7; O2SAT 93–99
[2024-05-27] MEDS: HEPARIN SODIUM,PORCINE 5,000 UNITS/ML VIAL SQ SCH (02:02)
[2024-05-27] MEDS: IPRATROPIUM BROMIDE 0.5 MG/2.5 ML NEB SOLUTION NEB PRN (04:16)
[2024-05-27] MEDS: ALBUTEROL SULFATE 2.5 MG/0.5 ML NEB SOLUTION NEB PRN (04:16)
[2024-05-27] MEDS: LORazepam 2 MG/ML VIAL IVP PRN (05:51)
[2024-05-27] MEDS: FAMOTIDINE 20 MG TABLET PO SCH (08:38)
[2024-05-27] MEDS: CHOLECALCIFEROL (VIT D3) 1,000 UNITS [25 MCG] TABLET PO SCH (08:39)
[2024-05-27] MEDS: LevETIRAcetam 500 MG TABLET PO SCH (08:39)
[2024-05-27] MEDS: MONTELUKAST SODIUM 10 MG TABLET PO SCH (08:39)
[2024-05-27] MEDS: GABAPENTIN 300 MG CAPSULE PO SCH (08:39)
[2024-05-27] MEDS: LACOSAMIDE 100 MG TABLET PO SCH (08:39)
[2024-05-27] MEDS: PANTOPRAZOLE SODIUM 40 MG DR TABLET PO SCH (08:39)
[2024-05-27] MEDS: ONDANSETRON HCL 4 MG/2 ML VIAL IVP PRN (08:43)
[2024-05-27] MEDS: INSULIN GLARGINE,HUM.REC.ANLOG 100 UNITS/ML SQ SCH (08:52)
[2024-05-27] MEDS: PARoxetine HCL 20 MG TABLET PO SCH (09:00)
[2024-05-27 17:15] LABS: GLUCOMETER DEV NAME(LOC) 5S.1B; GLUCOSE,POINT OF CARE 121 MG/DL (70-110)
[2024-05-27] MEDS: HYDROCODONE/ACETAMINOPHEN 5-325 MG TABLET PO PRN (17:28)
[2024-05-27] MEDS: MORPHINE SULFATE 2 MG/ML SYRINGE IVP PRN (18:40)
[2024-05-27] MEDS: MELATONIN 5 MG TABLET PO SCH (20:39)
[2024-05-27] MEDS: RIVAROXABAN 10 MG TABLET PO SCH (20:40)
[2024-05-27] MEDS: VALPROIC ACID 250 MG/5 ML SOLUTION UDCUP PO SCH (23:57)
[2024-05-27] MEDS: QUEtiapine FUMARATE 25 MG TABLET PO SCH (23:57)
[2024-05-28 05:44] VITALS: BP 129/72; PULSE 96; RESP 19; TEMP 97.7
[2024-05-28 08:00] VITALS: BP 111/70; PULSE 53; RESP 19; TEMP 98.3
[2024-05-28 16:00] VITALS: BP 126/59; PULSE 89; RESP 19; TEMP 97.5
[2024-05-28 20:00] VITALS: BP 125/85; PULSE 73; RESP 18; TEMP 97.5
[2024-05-29 05:35] VITALS: BP 120/81; PULSE 84; RESP 18; TEMP 98.1
[2024-05-29 08:34] VITALS: BP 131/95; PULSE 90; RESP 17; TEMP 97.2
[2024-05-29 09:12] LABS: BASOPHILS % (AUTO) 1.2 % (0.0-2.0); EOSINOPHILS % (AUTO) 1.8 % (1.0-6.0); HEMATOCRIT 43.8 % (36-46); HEMOGLOBIN 14.4 g/dL (12.0-16.0); LYMPHOCYTES % (AUTO) 45.2 % (22.0-44.0); MEAN CORPUSCULAR HEMOGLOBIN 27.5 pg (26.0-34.0); MEAN CORPUSCULAR HGB CONC 32.8 G/dL (31.0-37.0); MEAN CORPUSCULAR VOLUME 84 fL (80-100); MONOCYTES # (AUTO) 0.4 K/uL (0.1-1.0); MONOCYTES % (AUTO) 5.9 % (2.0-9.0); NEUTROPHILS % (AUTO) 45.9 % (40.0-70.0); PLATELET COUNT (AUTO) 368 K/uL (150-450); RED BLOOD CELL COUNT(AUTO) 5.23 MIL/uL (4.00-5.20); WHITE BLOOD COUNT (AUTO) 6.6 K/uL (4.5-11.0)
[2024-05-29] MEDS: LORazepam 1 MG TABLET PO PRN (09:43)
[2024-05-29 09:54] LABS: ALANINE AMINOTRANSFERASE 40 U/L (12-78); ALBUMIN 3.2 g/dL (3.4-5.0); ALKALINE PHOSPHATASE 86 U/L (46-116); ANION GAP 10 mmol/L (8-16); ASPARTATE AMINOTRANSFERASE 18 U/L (15-37); BILIRUBIN,TOTAL 0.5 mg/dL (0.1-1.0); CALCIUM, TOTAL 8.8 mg/dL (8.8-10.5); CARBON DIOXIDE 24 mmol/L (22-29); CHLORIDE 110 mmol/L (98-107); CREATININE 0.83 mg/dL (0.60-1.30); GLOMERULAR FILTR. RATE CALC > 60 mL/min (>60); GLUCOSE,RANDOM 75 mg/dL (70-110); POTASSIUM 4.2 mmol/L (3.5-5.1); SODIUM SERUM 144 mmol/L (136-145); TOTAL PROTEIN, SERUM 6.8 g/dL (6.4-8.2); UREA NITROGEN, BLOOD 14 mg/dL (7-18)
[2024-05-29 15:23] VITALS: BP 127/98; PULSE 74; RESP 18; TEMP 97.7
[2024-05-29] MEDS: ACETAMINOPHEN 325 MG TABLET PO PRN (16:28)
== END 2024-05-29 18:19 | DRG 53 ==
LOC: EMS 18:27 → EDH 22:26 → 5S 05-27 01:45 → 4E 05-27 18:00
PROVIDERS: ADMIT Hospitalist; ATTEND Hospitalist
PROC: 05HC33Z Insertion of Infusion Device into Left Basilic Vein, Percutaneous Approach (ICD-10-PCS; principal; 2024-05-27)
DX: G40.901 Epilepsy, unspecified, not intractable, with status epilepticus (principal); F25.9 Schizoaffective disorder, unspecified; J44.1 Chronic obstructive pulmonary disease with (acute) exacerbation; E11.9 Type 2 diabetes mellitus without complications; G47.30 Sleep apnea, unspecified; K21.9 Gastro-esophageal reflux disease without esophagitis; Z86.711 Personal history of pulmonary embolism; Z79.4 Long term (current) use of insulin; Z79.899 Other long term (current) drug therapy
CPT/HCPCS: 36245; 36569; 76937; 80053; 82550; 82962; 85025; 93005; 94640; 97162; 97530; 99285; G0378; J0712; J1644; J1815; J2060; J2270; J2405; J7060

== ENCOUNTER 2024-05-31 18:48 | Emergency (ER) | payer OTHER ==
[~2024-05-31] VITALS: Ht 160 cm; Wt 87.0 kg
[2024-05-31] MEDS ORDERED: LORazepam 2 MG/ML VIAL ONE (19:18)
[2024-05-31 19:29] VITALS: TEMP 98.4
[2024-05-31 20:28] LABS: BASOPHILS % (AUTO) 0.9 % (0.0-2.0); EOSINOPHILS % (AUTO) 1.7 % (1.0-6.0); HEMATOCRIT 41.9 % (36-46); HEMOGLOBIN 13.6 g/dL (12.0-16.0); LYMPHOCYTES # (AUTO) 3.7 K/uL (1.0-4.8); LYMPHOCYTES % (AUTO) 32.5 % (22.0-44.0); MEAN CORPUSCULAR HEMOGLOBIN 27.2 pg (26.0-34.0); MEAN CORPUSCULAR HGB CONC 32.4 G/dL (31.0-37.0); MEAN CORPUSCULAR VOLUME 84 fL (80-100); MONOCYTES # (AUTO) 0.7 K/uL (0.1-1.0); MONOCYTES % (AUTO) 6.5 % (2.0-9.0); NEUTROPHILS # (AUTO) 6.6 K/uL (1.8-7.7); NEUTROPHILS % (AUTO) 58.4 % (40.0-70.0); PLATELET COUNT (AUTO) 378 K/uL (150-450); RED BLOOD CELL COUNT(AUTO) 5.01 MIL/uL (4.00-5.20); RED CELL DISTRIBUTION WIDTH 18.9 % (11.5-14.5); WHITE BLOOD COUNT (AUTO) 11.3 K/uL (4.5-11.0)
[2024-05-31 20:34] LABS: ANION GAP 12 mmol/L (8-16); CALCIUM, TOTAL 8.6 mg/dL (8.8-10.5); CARBON DIOXIDE 24 mmol/L (22-29); CHLORIDE 105 mmol/L (98-107); CREATININE 0.75 mg/dL (0.60-1.30); GLOMERULAR FILTR. RATE CALC > 60 mL/min (>60); GLUCOSE,RANDOM 85 mg/dL (70-110); POTASSIUM 3.6 mmol/L (3.5-5.1); SODIUM SERUM 141 mmol/L (136-145); UREA NITROGEN, BLOOD 16 mg/dL (7-18)
[2024-05-31 20:49] VITALS: BP 135/75; PULSE 86; RESP 18
[2024-05-31] MEDS: LORazepam 2 MG/ML VIAL IM ONE (20:55)
[2024-05-31 21:01] LABS: ALANINE AMINOTRANSFERASE 35 U/L (12-78); ALBUMIN 3.2 g/dL (3.4-5.0); ALKALINE PHOSPHATASE 86 U/L (46-116); ASPARTATE AMINOTRANSFERASE 19 U/L (15-37); BILIRUBIN,TOTAL 0.3 mg/dL (0.1-1.0); CREATINE KINASE, TOTAL ONLY 82 U/L (26-192); TOTAL PROTEIN, SERUM 6.8 g/dL (6.4-8.2)
== END 2024-05-31 23:41 | disposition home or self-care (01) ==
LOC: EMS 18:48
DX: R56.9 Unspecified convulsions (principal); J44.9 Chronic obstructive pulmonary disease, unspecified; E11.9 Type 2 diabetes mellitus without complications; F20.9 Schizophrenia, unspecified; F12.90 Cannabis use, unspecified, uncomplicated
CPT/HCPCS: 99283; 80053; 82550; 85025; 36415; 96372; J2060

== ENCOUNTER 2024-06-01 13:20 | Emergency (ER) | payer OTHER ==
[~2024-06-01] VITALS: Ht 162.6 cm; Wt 127.3 kg
[2024-06-01 14:15] VITALS: TEMP 99.2
[2024-06-01 14:22] VITALS: BP 130/70; PULSE 90; RESP 18
[2024-06-01 15:57] LABS: BASOPHILS % (AUTO) 0.8 % (0.0-2.0); EOSINOPHILS % (AUTO) 1.1 % (1.0-6.0); HEMATOCRIT 43.5 % (36-46); HEMOGLOBIN 14.1 g/dL (12.0-16.0); LYMPHOCYTES # (AUTO) 2.7 K/uL (1.0-4.8); LYMPHOCYTES % (AUTO) 26.7 % (22.0-44.0); MEAN CORPUSCULAR HEMOGLOBIN 27.1 pg (26.0-34.0); MEAN CORPUSCULAR HGB CONC 32.5 G/dL (31.0-37.0); MEAN CORPUSCULAR VOLUME 84 fL (80-100); MONOCYTES # (AUTO) 0.7 K/uL (0.1-1.0); MONOCYTES % (AUTO) 6.8 % (2.0-9.0); NEUTROPHILS # (AUTO) 6.5 K/uL (1.8-7.7); NEUTROPHILS % (AUTO) 64.6 % (40.0-70.0); PLATELET COUNT (AUTO) 391 K/uL (150-450); RED CELL DISTRIBUTION WIDTH 19.3 % (11.5-14.5); WHITE BLOOD COUNT (AUTO) 10.1 K/uL (4.5-11.0)
[2024-06-01 16:06] LABS: ANION GAP 11 mmol/L (8-16); CALCIUM, TOTAL 9.4 mg/dL (8.8-10.5); CARBON DIOXIDE 24 mmol/L (22-29); CHLORIDE 105 mmol/L (98-107); CREATININE 0.78 mg/dL (0.60-1.30); GLOMERULAR FILTR. RATE CALC > 60 mL/min (>60); GLUCOSE,RANDOM 78 mg/dL (70-110); POTASSIUM 3.8 mmol/L (3.5-5.1); SODIUM SERUM 140 mmol/L (136-145); UREA NITROGEN, BLOOD 14 mg/dL (7-18)
== END 2024-06-01 18:59 | disposition home or self-care (01) ==
LOC: EMS 13:20
DX: R56.9 Unspecified convulsions (principal); E11.9 Type 2 diabetes mellitus without complications; E11.65 Type 2 diabetes mellitus with hyperglycemia; J45.909 Unspecified asthma, uncomplicated; J44.9 Chronic obstructive pulmonary disease, unspecified; F20.9 Schizophrenia, unspecified; K21.9 Gastro-esophageal reflux disease without esophagitis; F12.90 Cannabis use, unspecified, uncomplicated
CPT/HCPCS: 80048; 82962; 85025; 99283

== ENCOUNTER 2024-07-28 12:39 | Inpatient (IN) | payer MEDICAID, OTHER ==
[~2024-07-28] VITALS: Ht 144.8 cm; Wt 83.8 kg
[2024-07-28 14:24] LABS: BASOPHILS % (AUTO) 1.1 % (0.0-2.0); EOSINOPHILS % (AUTO) 1.9 % (1.0-6.0); HEMOGLOBIN 14.1 g/dL (12.0-16.0); LYMPHOCYTES # (AUTO) 3.1 K/uL (1.0-4.8); LYMPHOCYTES % (AUTO) 36.9 % (22.0-44.0); MEAN CORPUSCULAR HEMOGLOBIN 28.2 pg (26.0-34.0); MEAN CORPUSCULAR HGB CONC 32.8 G/dL (31.0-37.0); MEAN CORPUSCULAR VOLUME 86 fL (80-100); MONOCYTES # (AUTO) 0.5 K/uL (0.1-1.0); MONOCYTES % (AUTO) 5.5 % (2.0-9.0); NEUTROPHILS # (AUTO) 4.7 K/uL (1.8-7.7); NEUTROPHILS % (AUTO) 54.6 % (40.0-70.0); PLATELET COUNT (AUTO) 342 K/uL (150-450); RED BLOOD CELL COUNT(AUTO) 5.02 MIL/uL (4.00-5.20); RED CELL DISTRIBUTION WIDTH 16.4 % (11.5-14.5); WHITE BLOOD COUNT (AUTO) 8.5 K/uL (4.5-11.0)
[2024-07-28 14:30] LABS: ANION GAP 10 mmol/L (8-16); CARBON DIOXIDE 24 mmol/L (22-29); CHLORIDE 107 mmol/L (98-107); CREATININE 0.52 mg/dL (0.60-1.30); GLUCOSE,RANDOM 108 mg/dL (70-110); POTASSIUM 4.1 mmol/L (3.5-5.1); SODIUM SERUM 141 mmol/L (136-145); UREA NITROGEN, BLOOD 16 mg/dL (7-18)
[2024-07-28 14:31] LABS: CALCIUM, TOTAL 8.7 mg/dL (8.8-10.5); GLOMERULAR FILTR. RATE CALC > 60 mL/min (>60)
[2024-07-28 14:42] LABS: ALCOHOL, BLOOD (SERUM) < 3 mg/dL (0-10)
[2024-07-28 16:04] LABS: COVID AG,FIA SOURCE NASAL SWAB
[2024-07-28 16:13] LABS: PH,URINE DRUG SCREEN 6.5 (5.0-8.0)
[2024-07-28] MEDS ORDERED: PANT-31 PO (16:14)
[2024-07-28] MEDS ORDERED: SACC250C3 PO (16:14)
[2024-07-28] MEDS ORDERED: SENN-376 PO (16:14)
[2024-07-28] MEDS ORDERED: CEPH-558 PO (16:14)
[2024-07-28] MEDS ORDERED: ASCO500 PO (16:14)
[2024-07-28 16:19] LABS: AMPHET/METH SCREEN,URINE NEGATIVE (NEGATIVE); BARBITURATE SCREEN, URINE NEGATIVE (NEGATIVE); BENZODIAZEPINES SCREEN,URINE NEGATIVE (NEGATIVE); CANNABINOID SCREEN,URINE POSITIVE (NEGATIVE); COCAINE SCREEN,URINE NEGATIVE (NEGATIVE); METHADONE SCREEN, URINE NEGATIVE (NEGATIVE); OPIATE SCREEN,URINE NEGATIVE (NEGATIVE); PHENCYCLIDINE SCREEN,URINE NEGATIVE (NEGATIVE)
[2024-07-28 16:24] LABS: ALCOHOL, URINE DRUG SCREEN NEGATIVE (NEGATIVE)
[2024-07-28 16:31] LABS: SARS-COV2 (COVID) ANTIGEN,FIA Negative (Negative)
[2024-07-28] MEDS: OxyCODONE HCL 5 MG IR TABLET PO ONE ×2 (16:43→20:46)
[2024-07-28] MEDS: KETOROLAC TROMETHAMINE 30 MG/ML VIAL IM ONE (16:43)
[2024-07-28] MEDS: LORazepam 2 MG TABLET PO PRN (21:08)
[2024-07-28] MEDS: ZOLPIDEM TARTRATE 10 MG TABLET PO PRN (21:08)
[2024-07-28] MEDS: HALOPERIDOL 5 MG TABLET PO PRN (21:08)
[2024-07-29 02:43] VITALS: BP 130/81; PULSE 75; RESP 18; TEMP 97.9; O2SAT 95
[2024-07-29] MEDS ORDERED: NICOTINE POLACRILEX 2 MG LOZENGE PO PRN (07:00)
[2024-07-29] MEDS: LACOSAMIDE 100 MG TABLET PO SCH (09:23)
[2024-07-29] MEDS: LevETIRAcetam 500 MG TABLET PO SCH (09:24)
[2024-07-29 09:54] VITALS: BP 119/74; PULSE 77; RESP 18; TEMP 97.8; O2SAT 98
[2024-07-29] MEDS ORDERED: BENZOCAINE/MENTHOL LOZENGE PO PRN (11:30)
[2024-07-29] MEDS ORDERED: MAG HYDROX/ALUMINUM HYD/SIMETH ES 30 ML SUSPENSION UDCUP PO PRN (11:30)
[2024-07-29] MEDS ORDERED: LOPERAMIDE HCL 2 MG CAPSULE PO PRN (11:30)
[2024-07-29] MEDS ORDERED: ONDANSETRON 4 MG TABLET PO PRN (11:30)
[2024-07-29] MEDS ORDERED: ACETAMINOPHEN 325 MG TABLET PO PRN (11:30)
[2024-07-29] MEDS ORDERED: DOCUSATE SODIUM 100 MG CAPSULE PO PRN (11:30)
[2024-07-29] MEDS ORDERED: IBUPROFEN 600 MG TABLET PO PRN (11:30)
[2024-07-29] MEDS ORDERED: OMEPRAZOLE 20 MG CAPSULE PO PRN (11:30)
[2024-07-29] MEDS ORDERED: PETROLATUM,WHITE 28 GM JELLY TP PRN (11:30)
[2024-07-29] MEDS ORDERED: BACITRACIN 28 GM OINTMENT TP PRN (11:30)
[2024-07-29] MEDS ORDERED: CloNIDine HCL 0.1 MG TABLET PO PRN (11:30)
[2024-07-29] MEDS ORDERED: ALBUTEROL SULFATE HFA 90 MCG/PUFF 8 GM INHALER IH PRN (11:30)
[2024-07-29] MEDS ORDERED: MAGNESIUM HYDROXIDE SUSPENSION 30 ML UDCUP PO PRN (11:30)
[2024-07-29] MEDS ORDERED: DEXTROSE 50%-WATER 25 GM/50 ML SYRINGE IVP PRN (11:30)
[2024-07-29 17:15] LABS: GLUCOMETER DEV NAME(LOC) 3E.I 2; GLUCOSE,POINT OF CARE 107 MG/DL (70-110)
[2024-07-29] MEDS: MetFORMIN HCL 500 MG TABLET PO SCH (17:40)
[2024-07-29 18:51] LABS: GLUCOMETER DEV NAME(LOC) 3E.I 2; GLUCOSE,POINT OF CARE 101 MG/DL (70-110)
[2024-07-29 21:31] VITALS: BP 119/73; PULSE 66; RESP 18; TEMP 97.7; O2SAT 96
[2024-07-29 21:36] LABS: GLUCOMETER DEV NAME(LOC) 3E.I 2; GLUCOSE,POINT OF CARE 123 MG/DL (70-110)
[2024-07-29] MEDS: VALPROIC ACID 250 MG CAPSULE PO SCH (21:57)
[2024-07-29] MEDS: QUEtiapine FUMARATE 25 MG TABLET PO SCH (21:57)
[2024-07-29 22:00] VITALS: PULSE 62; PULSE 65; RESP 16; RESP 17; O2SAT 99
[2024-07-30 04:43] VITALS: PULSE 62; RESP 17; O2SAT 93
[2024-07-30 06:02] LABS: GLUCOMETER DEV NAME(LOC) 3E.I 2; GLUCOSE,POINT OF CARE 86 MG/DL (70-110)
[2024-07-30] MEDS ORDERED: INFLUENZA VIRUS VACCINE TVS (6MO+) 2024-25/PF 45 MCG/0.5 ML SYRINGE IM. ONE (06:30)
[2024-07-30] MEDS: PARoxetine HCL 20 MG TABLET PO SCH (08:47)
[2024-07-30] MEDS: GABAPENTIN 300 MG CAPSULE PO SCH (08:48)
[2024-07-30] MEDS: INSULIN GLARGINE,HUM.REC.ANLOG 100 UNITS/ML SQ SCH (09:00)
[2024-07-30 09:41] LABS: GLUCOMETER DEV NAME(LOC) 3E.I 2; GLUCOSE,POINT OF CARE 80 MG/DL (70-110)
[2024-07-30 10:17] VITALS: BP 104/69; PULSE 69; RESP 17; TEMP 97.6; O2SAT 99
[2024-07-30 10:35] LABS: GLUCOMETER DEV NAME(LOC) 3E.I 2; GLUCOSE,POINT OF CARE 88 MG/DL (70-110)
[2024-07-30 12:20] LABS: GLUCOMETER DEV NAME(LOC) 3E.I 2; GLUCOSE,POINT OF CARE 91 MG/DL (70-110)
[2024-07-30] MEDS: ETHYL ALCOHOL 62% ANTISEPTIC NASAL SANITIZER 0.6 ML AMPUL NASAL SCH (12:39)
[2024-07-30] MEDS: INSULIN LISPRO 100 UNITS/ML SQ PRN (13:12)
[2024-07-30 16:36] LABS: GLUCOMETER DEV NAME(LOC) 3E.I 2; GLUCOSE,POINT OF CARE 108 MG/DL (70-110)
[2024-07-30 19:40] VITALS: PULSE 67; RESP 17; O2SAT 99
[2024-07-30 21:15] VITALS: TEMP 97.7
[2024-07-31 06:16] LABS: GLUCOMETER DEV NAME(LOC) 3E.I 2; GLUCOSE,POINT OF CARE 150 MG/DL (70-110)
[2024-07-31 08:56] VITALS: BP 105/70; PULSE 83; RESP 18; O2SAT 99
[2024-07-31 09:31] LABS: GLUCOMETER DEV NAME(LOC) 3E.I 2; GLUCOSE,POINT OF CARE 131 MG/DL (70-110)
[2024-07-31 11:26] LABS: GLUCOMETER DEV NAME(LOC) 3E.I 2; GLUCOSE,POINT OF CARE 127 MG/DL (70-110)
[2024-07-31] MEDS: TraMADol HCL 50 MG TABLET PO PRN (12:26)
[2024-07-31 12:29] VITALS: BP 121/76; PULSE 72; RESP 18
[2024-07-31 16:51] LABS: GLUCOMETER DEV NAME(LOC) 3E.I 2; GLUCOSE,POINT OF CARE 105 MG/DL (70-110)
[2024-07-31] MEDS ORDERED: IPRA3AMP24 NEB (19:44)
[2024-07-31] MEDS ORDERED: VALP250C48 PO (19:44)
[2024-07-31] MEDS ORDERED: FLUT1BLS15 IH (19:44)
[2024-07-31 20:05] LABS: GLUCOMETER DEV NAME(LOC) 3E.I 2; GLUCOSE,POINT OF CARE 92 MG/DL (70-110)
[2024-07-31 20:53] VITALS: BP 125/84; PULSE 78; RESP 18; TEMP 97.5; O2SAT 100
[2024-07-31 21:15] VITALS: BP 125/84; PULSE 78; RESP 18; TEMP 97.5; O2SAT 100
[2024-07-31 22:19] VITALS: RESP 18
[2024-07-31 22:39] VITALS: PULSE 63; RESP 28; O2SAT 97; O2SAT 98
[2024-08-01] VITALS (7 sets, daily range): BP systolic 120–135; BP diastolic 73–85; PULSE 58–77; RESP 17–23; TEMP 97–98.2; O2SAT 96–100
[2024-08-01 06:50] LABS: GLUCOMETER DEV NAME(LOC) 3E.I 2; GLUCOSE,POINT OF CARE 97 MG/DL (70-110)
[2024-08-01] MEDS: BACITRACIN 28 GM OINTMENT TP SCH (11:24)
[2024-08-01 11:25] LABS: GLUCOMETER DEV NAME(LOC) 3E.I 2; GLUCOSE,POINT OF CARE 111 MG/DL (70-110)
[2024-08-01 16:30] LABS: GLUCOMETER DEV NAME(LOC) 3E.I 2; GLUCOSE,POINT OF CARE 107 MG/DL (70-110)
[2024-08-01 20:15] LABS: GLUCOMETER DEV NAME(LOC) 3E.I 2; GLUCOSE,POINT OF CARE 109 MG/DL (70-110)
[2024-08-02 01:20] VITALS: PULSE 64; RESP 19; O2SAT 98
[2024-08-02 04:07] VITALS: PULSE 71; RESP 14; O2SAT 95
[2024-08-02 06:15] LABS: GLUCOMETER DEV NAME(LOC) 3E.I 2; GLUCOSE,POINT OF CARE 84 MG/DL (70-110)
[2024-08-02 10:00] VITALS: BP 101/60; PULSE 78; RESP 18; TEMP 98; O2SAT 95
[2024-08-02 11:41] LABS: GLUCOMETER DEV NAME(LOC) 3E.I 2; GLUCOSE,POINT OF CARE 93 MG/DL (70-110)
[2024-08-03] MEDS ORDERED: INSULIN GLARGINE,HUM.REC.ANLOG 100 UNITS/ML SQ SCH (09:00)
== END 2024-08-02 17:47 | DRG 750 ==
LOC: EMS 12:41 → 3EI 07-29 00:59
PROVIDERS: ADMIT Psychiatry & Neurology Psychiatry; ATTEND Psychiatry & Neurology Psychiatry
PROC: 5A09357 Assistance with Respiratory Ventilation, Less than 24 Consecutive Hours, Continuous Positive Airway Pressure (ICD-10-PCS; principal; 2024-07-31)
PROC: 5A09357 Assistance with Respiratory Ventilation, Less than 24 Consecutive Hours, Continuous Positive Airway Pressure (ICD-10-PCS; 2024-08-01)
DX: F25.0 Schizoaffective disorder, bipolar type (principal); R45.850 Homicidal ideations; E11.9 Type 2 diabetes mellitus without complications; G40.909 Epilepsy, unspecified, not intractable, without status epilepticus; E66.01 Morbid (severe) obesity due to excess calories; Z68.41 Body mass index [BMI] 40.0-44.9, adult; Z20.822 Contact with and (suspected) exposure to COVID-19; F41.9 Anxiety disorder, unspecified; K59.00 Constipation, unspecified; G47.00 Insomnia, unspecified; I10 Essential (primary) hypertension; G47.33 Obstructive sleep apnea (adult) (pediatric); J44.9 Chronic obstructive pulmonary disease, unspecified; Z86.711 Personal history of pulmonary embolism
CPT/HCPCS: 80048; 80307; 82962; 85025; 87081; 94660; 99285; G0480; J1815; J1885